=== PATIENT | male | born 1990 | race Caucasian/White ===

== ENCOUNTER 2017-02-20 10:12 | Emergency (ER) | payer BC ==
[2017-02-20] MEDS ORDERED: 0.9 % SODIUM CHLORIDE 1,000 ML IV ONE ×2 (10:47→13:23)
[2017-02-20] MEDS ORDERED: THIAMINE HCL 100 MG/ML 2ML VIAL ONE (10:47)
[2017-02-20] MEDS ORDERED: MVI, ADULT NO.1 WITH VIT K 10 ML VIAL IV ONE (10:47)
[2017-02-20] MEDS ORDERED: FOLIC ACID 5 MG/1 ML ONE (10:47)
[2017-02-20] MEDS: THIAMINE HCL 100 MG, MVI, ADULT NO.1 WITH VIT K 10 ML, FOLIC ACID 5 MG in 0.9 % SODIUM ... IV SCH ×4 (10:50)
[2017-02-20] MEDS: ONDANSETRON HCL/PF 4 MG/ 2ML VIAL IVP ONE (10:50)
[2017-02-20] MEDS: HALOPERIDOL LACTATE 5 MG/ML VIAL IM ONE (10:52)
[2017-02-20] MEDS: CloNIDine HCL 0.1 MG TABLET PO ONE (10:54)
[2017-02-20 11:06] LABS: BASOPHILS % 0.4 (0.0-1.5); EOSINOPHILS % 0.3 % (0.0-6.8); MEAN CORPUSCULAR VOLUME 86.6 fl (80.0-100.0); MONOCYTES % 4.4 % (0.0-11.0); NEUTROPHILS # 8.8 # k/uL (1.4-7.7)
[2017-02-20 11:27] LABS: eGFR (African) > 60; eGFR (Non-African) > 60
[2017-02-20] MEDS: TUBERCULIN,PURIF.PROT.DERIV. 5 TU/0.1 ML ID SCH (12:55)
--- NOTE | 2017-02-20 13:00 | ED Physician Documentation ---
General Adult - HISTORIAN Historian: patient - HPI Stated Complaint: withdraw Chief Complaint: General Adult Additional Information: Pt. is a 27 year old male who presented originally to the [facility] for opiate and mentamphetamine rehabilitation. During intake it was discovered he takes 1/2 gram of methamphetamine/day, 2-3 grams of heroin/day and 200 mg of methadone/day when he cannot get heroin. Pt. also fills in with oxycodone and takes ecstasy when he can get it. His primary drugs are methamphetamine and heroin. His last methadone was 3 days ago. His last heroin was yesterday at 1500. He presents to ER in withdrawl having diaphoresis, nausea, abdominal cramps, diarrhea, anxiety, tachypnea. Onset: days ago (1) Timing: still present Severity: severe Modifying Factors: 7 year daily heroin history and 9 year methamphetamine history Context: all medications pt. takes are illegally obtained. None are prescribed for Quality: moderate to severre withdrawl symptoms Further Comments: no Last known Well Date: 02/19/17 Last Known Well Time: 15:00 - ROS CONST: sweating, weakness, chills EYES/ENT: nasal drainage CVS/RESP: shortness of breath. denies: chest pain, cough GI/: abdominal pain, nausea, diarrhea MS/SKIN/LYMPH: other (generalized muscle aches) NEURO/PSYCH: numbness, anxiety - PAST HX Past History: none Other History: none Surgeries/Procedures: none Immunizations: referred to PCP Allergies/Adverse Reactions: Allergies Allergy/AdvReac Type Severity Reaction Status Date / Time No Known Allergies Allergy Unverified 02/20/17 10:30 Home Medications: Ambulatory Orders Medication Instructions Recorded NK [NK] 02/20/17 - SOCIAL HX Smoking History: cigarettes Alcohol Use: none Drug Use: heroin, methamphetamines, other (occasional methadone, oxycodone, ecstasy) - FAMILY HX Family History: No - VITAL SIGNS Vital Signs: Vital Signs Temp Pulse Resp BP Pulse Ox 98.9 F 116 H 26 H 83/61 99 02/20/17 10:24 02/20/17 10:24 02/20/17 10:24 02/20/17 10:24 02/20/17 10:24 - REVIEWED ASSESSMENTS Nursing Assessment Reviewed: Yes Vitals Reviewed: Yes Progress - Results/Orders Results/Orders: cbc, cmp, cxr, ekg, hep c, hiv and tb screen ordered. UDS and UA done at [facility], records in transfer packet. - Progress Progress: Pt. given a banana bag IV, NS at 125 cc/hr, Clonidine 0.1 mg p.o. and 10 mg Haldol IM in ER with excellent calming of symptoms. Critical Care Note - Critical Care Note Total Time (mins): 0 ED Results Lab/Radiology - Lab Results Lab Results: Lab Results 02/20/17 02/20/17 10:55 10:55 WBC 10.60 K/ul K/ul (4.00-12.00) RBC 4.45 M/ul M/ul (3.90-5.20) Hgb 13.4 g/dL g/dL (12.0-18.0) Hct 38.5 % % (37.0-53.0) MCV 86.6 fl fl (80.0-100.0) MCH 30.0 pg pg (28.0-34.0) MCHC 34.7 g/dL g/dL (30.0-36.0) RDW 12.9 % % (11.3-14.3) Plt Count 345 K/mm3 K/mm3 (130-400) Neut % (Auto) 82.8 % H % (39.0-79.0) Lymph % (Auto) 10.8 % L % (16.0-50.0) [place] % (Auto) 4.4 % % (0.0-11.0) Eos % (Auto) 0.3 % % (0.0-6.8) Baso % (Auto) 0.4 (0.0-1.5) Neut # (Auto) 8.8 # k/uL H # k/uL (1.4-7.7) Lymph # (Auto) 1.2 # k/uL # k/uL (0.6-4.0) [place] # (Auto) 0.5 # k/uL # k/uL (0.0-0.9) Eos # (Auto) 0.0 # k/uL # k/uL (0.0-0.6) Baso # (Auto) 0.0 # k/uL # k/uL (0.0-0.5) Reactive Lymphs % 1.3 % % (0.0-5.0) Reactive Lymphs # 0.1 # k/uL # k/uL (0.0-0.8) Sodium 136 mmol/L mmol/L (136-145) Potassium 3.9 mmol/L mmol/L (3.5-5.0) Chloride 102 mmol/L mmol/L (98-110) Carbon Dioxide 23 mmol/L mmol/L (20-32) BUN 19 mg/dL mg/dL (10-26) Creatinine 0.8 mg/dL mg/dL (0.4-1.5) Estimated Creat Clear 119 Est GFR ( Amer) > 60 (60 - ) Est GFR (Non-Af Amer) > 60 (60 - ) Glucose 99 mg/dL mg/dL (70-99) Calcium 10.7 mg/dL H mg/dL (8.5-10.5) Total Bilirubin 1.0 mg/dL mg/dL (0.2-1.2) AST 26 U/L U/L (0-41) ALT 45 U/L U/L (0-45) Alkaline Phosphatase 104 U/L U/L (46-116) Total Protein 8.0 g/dL g/dL (6.0-8.5) Albumin 5.1 g/dL g/dL (3.0-5.5) - Radiology Radiology Impressions: cxr clear of infiltrate - Orders Orders: ED Orders Category Date Time Status Place IV Lock 1T Care 02/20/17 10:41 Active CHEST 1 VIEW [RAD] Routine Exams 02/20/17 Ordered CBC/PLATELET/DIFF Routine Lab 02/20/17 10:55 Completed CMP Routine Lab 02/20/17 10:55 Completed HEPATITIS PANEL-ACUTE Routine Lab 02/20/17 10:55 Received HIV-1/2 COMBO AG/AB RYLAND,REFLEX Routine Lab 02/20/17 10:55 Received 0.9 % Sodium Chloride [Normal Saline] 1,000 ml Med 02/20/17 10:47 Discontinued IV .STK-MED CloNIDine HCL [Catapress] Med 02/20/17 10:41 Discontinued 0.1 mg PO NOW ONE Folic Acid [Folvite] Med 02/20/17 10:47 Discontinued 5 mg .ROUTE .STK-MED ONE Haloperidol Lactate [Haldol] Med 02/20/17 10:41 Discontinued 10 mg IM NOW ONE Mvi, Adult No.1 with Vit K [M.v.i. Adult] Med 02/20/17 10:47 Discontinued 10 ml IV .STK-MED ONE Ondansetron HCl/Pf [Zofran 4 mg/2 ml] Med 02/20/17 10:41 Discontinued 8 mg IVP NOW ONE Thiamine HCl Med 02/20/17 10:47 Discontinued 200 mg .ROUTE .STK-MED ONE Thiamine HCl 100 mg Med 02/20/17 13:00 Ordered Mvi, Adult No.1 with Vit K [M.v.i. Adult] 10 ml Folic Acid [Folvite] 5 mg 0.9 % Sodium Chloride [Normal Saline] 1,000 ml IV Q8 Tuberculin,Purif.prot.deriv. [Tubersol] Med 02/20/17 18:00 Ordered 5 tu ID [id number] EKG WITH COMPARISON Routine Ther 02/20/17 Ordered General Adult Physical Exam - PHYSICAL EXAM GENERAL APPEARANCE: moderate distress EENT: ENT inspection normal, pharynx normal, STEW, no nystagmus, TM's nml NECK: normal inspection, thyroid normal, supple RESPIRATORY: breath sounds normal, other (tachypnea). No: wheezes, rales CVS: reg rate & rhythm, heart sounds normal, equal pulses, no murmur ABDOMEN: soft, no organomegaly, no abdominal bruit, no distension, tenderness ( generalized), increased BS BACK: normal inspection, no CVA tenderness SKIN: diaphoresis EXTREMITIES: normal range of motion, no evidence of injury, no edema NEURO: oriented X3, CN's nml as tested, motor nml, sensation nml, cognition normal, other (anxiety) Discharge Clincal Impression: Opiate withdrawal Referrals: Kannan Samuels MD [Primary Care Provider] - 2 Days Home Medications: Ambulatory Orders NK [NK] 02/20/17 Comments: Case discussed with Dr. Durant who accepts transfer at [facility]. Transferred in stable condition to [facility] via ground ambulance. Condition: Stable Disposition: 02 XFER [id number] HOSP Decision to Admit: NO Decision Time: 12:45
[2017-02-20] MEDS: 0.9 % SODIUM CHLORIDE 1,000 ML IV SCH (13:22)
[2017-02-20 13:32] VITALS: BP 99/52
--- NOTE | 2017-02-20 23:55 | Diagnostic Imaging Report ---
[facility] [address] [facility] [address] [address] ~ ~ ~ ~ Report Submission Date: Feb 20, 2017 11:42:28 AM CDT Patient ~ Study Name: JOAQUIN LLANOS ~ Date: Feb 20, 2017 11:20:29 AM CDT ~ Modality Type: CR Gender: M ~ Description: CHEST : 88 ~ Institution: [facility] Physician CUATE MCCANN ~ ~ ~ Chest, 1 view History: ~BODY ACHES/ NOT FEELING WELL TODAY Findings: The heart size is normal. The lungs are clear. There is no pleural effusion or pneumothorax identified. The osseous structures are normal. Impression: 1. No acute pulmonary disease. ~ Electronically signed on Feb 20, 2017 11:42:28 AM CDT by: Bassam SALINAS
== END 2017-02-20 13:30 | disposition short-term general hospital (02) ==
LOC: ED 10:12
DX: F11.23 Opioid dependence with withdrawal (principal)
CPT/HCPCS: 71010; 80053; 80074; 85025; 86703; 93005; J1630; J2405; J3411; J3490; J7030; 96361; 96372; 96374; 99284; S1016